=== PATIENT | female | born 1950 | race Hispanic/Latino ===

== ENCOUNTER 2017-05-18 06:30 | Inpatient (IN) | payer OTHER ==
[2017-05-16 14:00] VITALS: BP 119/61
[2017-05-16 14:21] LABS: BASOPHILS % (AUTO) 0.6 % (0.0-5.0); EOSINOPHILS % (AUTO) 1.1 % (0.0-8.0); HEMATOCRIT 41.6 % (36-48); LYMPHOCYTES % (AUTO) 24.6 % (21.0-51.0); MEAN CORPUSCULAR HEMOGLOBIN 31.1 pg (27.0-33.0); MEAN CORPUSCULAR HGB CONC 33.6 g/dL (32.0-36.0); MEAN CORPUSCULAR VOLUME 92.3 fL (79-99); MONOCYTES % (AUTO) 6.1 % (3.0-13.0); NEUTROPHILS % (AUTO) 67.6 % (40.0-77.0); PLATELET COUNT (AUTO) 209 K/uL (130-400); RED BLOOD CELL COUNT(AUTO) 4.51 MIL/uL (4.00-5.50); RED CELL DISTRIBUTION WIDTH 13.9 % (11.0-15.5); WHITE BLOOD COUNT (AUTO) 8.6 K/uL (4.8-10.8)
[2017-05-16 14:50] LABS: ALBUMIN 3.5 g/dL (3.5-5.0); BILIRUBIN,TOTAL 0.2 mg/dL (0.2-1.0); CREATININE 0.9 mg/dL (0.5-1.5); POTASSIUM 4.5 mmol/L (3.5-5.1); TOTAL PROTEIN, SERUM 7.3 g/dL (6.0-8.3)
[2017-05-18] VITALS (25 sets, daily range): BP systolic 92–125; BP diastolic 42–71
[~2017-05-18] VITALS: Ht 148.6 cm; Wt 72.7 kg
[~2017-05-18 06:30] MED LIST: CALDOLOR 800MG+NS 250ML 250 ML IV SCH; CETI10TA86 PO; L.AC1CAP6 PO; MONT10TA24 PO; MULT-1296 PO; OMEP20CA10 PO
[2017-05-18] MEDS ORDERED: LACTATED RINGERS 1000ML 1,000 ML IV ONE (07:16)
[2017-05-18] MEDS: CEFAZOLIN SODIUM 1 GM VIAL IVP SCH ×3 (07:30→18:23)
[2017-05-18] MEDS ORDERED: PROPOFOL 10 MG/ML 20ML VIAL IV ONE (08:08)
[2017-05-18] MEDS ORDERED: MIDAZOLAM HCL 1 MG/ML 2ML VIAL ONE (08:09)
[2017-05-18] MEDS ORDERED: FENTANYL CITRATE PF 50 MCG/1 ML 5ML AMP IV ONE (08:09)
[2017-05-18] MEDS ORDERED: BUPIVACAINE/PF 0.25% 30ML VIAL IJ ONE (08:53)
[2017-05-18] MEDS ORDERED: LIDOCAINE HCL/EPINEPHRINE 50 ML VIAL IJ ONE (08:53)
[2017-05-18] MEDS ORDERED: DEXAMETHASONE SOD PHOSPHATE 10MG/ML 1ML VIAL ONE (09:35)
[2017-05-18] MEDS ORDERED: ONDANSETRON HCL 4 MG/2 ML VIAL ONE (09:35)
[2017-05-18] MEDS ORDERED: ROCURONIUM BROMIDE 10MG/1ML 5ML VL ONE (09:35)
[2017-05-18] MEDS ORDERED: LIDOCAINE PF 2% 5ML ABBOJECT ONE (09:35)
[2017-05-18] MEDS ORDERED: PROMETHAZINE HCL 25 MG/ML 1ML AMPULE IM PRN (10:30)
[2017-05-18] MEDS ORDERED: DiphenhydrAMINE HCL 50 MG/ML VIAL IV PRN (10:30)
[2017-05-18] MEDS ORDERED: ONDANSETRON HCL 4 MG/2 ML VIAL IV PRN (10:30)
[2017-05-18] MEDS ORDERED: BISACODYL 10 MG SUPP.RECT RC PRN (10:30)
[2017-05-18] MEDS ORDERED: METOCLOPRAMIDE 10 MG/2 ML VIAL IV PRN (10:30)
[2017-05-18] MEDS ORDERED: NALOXONE HCL 0.4 MG/1 ML ML IVP PRN (10:30)
[2017-05-18] MEDS ORDERED: DIPHENHYDRAMINE HCL 25 MG CAPSULE PO PRN (10:30)
[2017-05-18] MEDS ORDERED: MEPERIDINE 10MG/ML 50ML PCA 50 ML IV PRN (10:30)
[2017-05-18] MEDS ORDERED: MEPERIDINE-PF 50 MG/ML SYG ONE (10:38)
[2017-05-18] MEDS ORDERED: WATER FOR INJECTION,STERILE 20 ML VIAL IJ SCH ×2 (10:45→18:12)
[2017-05-18] MEDS ORDERED: CEFAZOLIN 2GM / 50 ML 50 ML IV SCH (14:00)
[2017-05-18] MEDS ORDERED: COMPOUND IV REFRIGERATED 1 EACH IVSOLN MISC PRN (18:30)
[2017-05-18] MEDS: CALDOLOR 800MG+NS 250ML 250 ML IVPB SCH (18:55)
[2017-05-18] MEDS: DEXTROSE 5 %-0.45 % NACL 1,000 ML IV PRN (23:57)
[2017-05-19] MEDS ORDERED: CEFAZOLIN 1GM / D5W 50ML 100 ML ONE (02:28)
[2017-05-19] MEDS: CEFAZOLIN SODIUM 1 GM VIAL IVP SCH (02:35)
[2017-05-19] MEDS: DEXTROSE 5 %-0.45 % NACL 1,000 ML IV PRN (02:49)
[2017-05-19] MEDS: CALDOLOR 800MG+NS 250ML 250 ML IVPB SCH (02:49)
[2017-05-19 03:35] VITALS: BP 101/56
[2017-05-19 06:05] LABS: HEMATOCRIT 34.4 % (36-48); MEAN CORPUSCULAR HEMOGLOBIN 31.9 pg (27.0-33.0); MEAN CORPUSCULAR HGB CONC 34.4 g/dL (32.0-36.0); MEAN CORPUSCULAR VOLUME 92.7 fL (79-99); PLATELET COUNT (AUTO) 165 K/uL (130-400); RED BLOOD CELL COUNT(AUTO) 3.71 MIL/uL (4.00-5.50); RED CELL DISTRIBUTION WIDTH 13.8 % (11.0-15.5); WHITE BLOOD COUNT (AUTO) 16.9 K/uL (4.8-10.8)
[2017-05-19 08:14] VITALS: BP 93/54
[2017-05-19] MEDS: SIMETHICONE 80 MG TAB.CHEW PO PRN ×3 (09:37→21:25)
[2017-05-19] MEDS: PANTOPRAZOLE SODIUM 40 MG TABLET.DR PO SCH (09:37)
[2017-05-19] MEDS: MONTELUKAST SODIUM 10 MG TAB PO SCH (09:37)
[2017-05-19] MEDS: IBUPROFEN 800 MG TAB PO SCH ×2 (11:25→18:30)
[2017-05-19 12:15] VITALS: BP 131/70
[2017-05-19] MEDS: ACETAMINOPHEN-CODEINE 300/30MG TAB PO PRN ×2 (14:08→20:52)
[2017-05-19 20:13] VITALS: BP 116/65
[2017-05-19 23:19] VITALS: BP 99/64
[2017-05-20] MEDS: IBUPROFEN 800 MG TAB PO SCH ×2 (02:46→11:13)
[2017-05-20 02:55] VITALS: BP 98/58
[2017-05-20 07:59] VITALS: BP 119/70
[2017-05-20] MEDS: SIMETHICONE 80 MG TAB.CHEW PO PRN (09:23)
[2017-05-20] MEDS: PANTOPRAZOLE SODIUM 40 MG TABLET.DR PO SCH (09:23)
[2017-05-20] MEDS: MONTELUKAST SODIUM 10 MG TAB PO SCH (09:23)
[2017-05-20 11:16] VITALS: BP 137/69
== END 2017-05-20 12:40 | disposition home or self-care (01) | DRG 743 ==
LOC: DAH 06:30 → WSH 06:31 → DAH 06:31 → WSH 12:10
PROC: 0UT90ZZ Resection of Uterus, Open Approach (ICD-10-PCS; principal; 2017-05-18 08:05)
PROC: 0UT70ZZ Resection of Bilateral Fallopian Tubes, Open Approach (ICD-10-PCS; 2017-05-18 08:05)
PROC: 0UT20ZZ Resection of Bilateral Ovaries, Open Approach (ICD-10-PCS; 2017-05-18 08:05)
DX: N85.00 Endometrial hyperplasia, unspecified (principal); E66.9 Obesity, unspecified; K66.0 Peritoneal adhesions (postprocedural) (postinfection); Z68.32 Body mass index [BMI] 32.0-32.9, adult; Z88.8 Allergy status to other drugs, medicaments and biological substances
CPT/HCPCS: 36415; 80053; 85025; 85027; 86850; 86900; 86901; 88307; 96365; A4218; A4344; A4606; J0690; J1100; J1741; J2001; J2175; J2250; J2405; J2550; J2704; J2765; J3010; J3490; J7030; J7120

== ENCOUNTER → 2018-05-08 | Outpatient (CLI) | payer OTHER ==
[~2018-05-08] MED LIST changes: -CALDOLOR 800MG+NS 250ML 250 ML IV SCH
== END | disposition home or self-care (01) ==
LOC: RAH 14:47
PROVIDERS: ATTEND Urology
DX: N28.1 Cyst of kidney, acquired (principal); Z87.440 Personal history of urinary (tract) infections
CPT/HCPCS: 76770

== ENCOUNTER → 2020-06-18 | Outpatient (CLI) | payer MEDICARE, OTHER ==
[~2020-06-18] MED LIST changes: -MONT10TA24 PO; +MONT10TA32 PO; -OMEP20CA10 PO; +OMEP20CA12 PO
== END | disposition home or self-care (01) ==
LOC: SHCH 13:21
PROVIDERS: ATTEND Internal Medicine Cardiovascular Disease
DX: R55 Syncope and collapse (principal); R00.2 Palpitations
CPT/HCPCS: 93306; 93356

== ENCOUNTER → 2020-07-09 | Outpatient (CLI) | payer MEDICARE, OTHER | END | disposition home or self-care (01) | LOC: OIH 07:48 | PROVIDERS: ATTEND Internal Medicine | DX: M19.072 Primary osteoarthritis, left ankle and foot (principal); M19.042 Primary osteoarthritis, left hand; M19.041 Primary osteoarthritis, right hand; M25.775 Osteophyte, left foot; M77.32 Calcaneal spur, left foot; M25.742 Osteophyte, left hand; M25.741 Osteophyte, right hand | CPT/HCPCS: 73630 ==

== ENCOUNTER → 2022-06-24 | Outpatient (CLI) | payer MEDICARE, OTHER ==
[~2022-06-24] MED LIST changes: -CETI10TA86 PO; +CETI10TA87 PO; +MONT-39 PO; -MONT10TA32 PO
== END | disposition home or self-care (01) ==
LOC: RAH 08:31
PROVIDERS: ATTEND Internal Medicine Gastroenterology
DX: K21.9 Gastro-esophageal reflux disease without esophagitis (principal); R12 Heartburn; R49.8 Other voice and resonance disorders
CPT/HCPCS: 74240

== ENCOUNTER 2023-07-20 09:14 | Emergency (ER) | payer MEDICARE, OTHER ==
[~2023-07-20] VITALS: Ht 162.6 cm; Wt 86.2 kg
[~2023-07-20 09:14] MED LIST changes: +AEC81 PO; +ATOR40TA71 PO; +CHOL500045 PO; +CRAN1CAP5 PO; +FAMO40TA7 PO; +MULT-1250 PO; -MULT-1296 PO; +VERA120T92 PO
[2023-07-20] MEDS: 0.9%NACL 1000ML 1,000 ML IV ONE (10:08)
[2023-07-20] MEDS: MORPHINE 2 MG SYG IVP ONE ×2 (10:08→11:45)
[2023-07-20] MEDS: ONDANSETRON 4MG INJ IVP ONE (10:17)
[2023-07-20 10:27] LABS: BASOPHILS # (AUTO) 0.02 K/uL (0.00-0.20); BASOPHILS % (AUTO) 0.3 % (0.0-5.0); EOSINOPHILS # (AUTO) 0.07 K/uL (0.00-0.70); EOSINOPHILS % (AUTO) 0.9 % (0.0-8.0); HEMATOCRIT 40.7 % (36-48); IMMATURE GRANULOCYTE ABSOLUTE 0.03 K/uL (0-1); LYMPHOCYTES # (AUTO) 1.9 K/uL (1.0-4.8); LYMPHOCYTES % (AUTO) 23.4 % (21.0-51.0); MEAN CORPUSCULAR HEMOGLOBIN 30.9 pg (27.0-33.0); MEAN CORPUSCULAR HGB CONC 32.9 g/dL (32.0-36.0); MEAN CORPUSCULAR VOLUME 93.8 fL (79-99); MONOCYTES # (AUTO) 0.5 K/uL (0.1-1.0); MONOCYTES % (AUTO) 6.6 % (3.0-13.0); NEUTROPHILS # (AUTO) 5.5 K/uL (1.8-7.7); NEUTROPHILS % (AUTO) 68.4 % (40.0-77.0); PLATELET COUNT (AUTO) 177 K/uL (130-400); RED BLOOD CELL COUNT(AUTO) 4.34 MIL/uL (4.00-5.50); RED CELL DISTRIBUTION WIDTH 13.9 % (11.0-15.5)
[2023-07-20 10:30] LABS: APPEARANCE,URINE CLEAR (CLEAR); BILIRUBIN,URINE NEGATIVE (NEGATIVE); COLOR,URINE YELLOW (YELLOW); GLUCOSE, URINE (UA) NEGATIVE (NEGATIVE); KETONES,URINE 5 mg/dL (NEGATIVE); LEUKOCYTE ESTERASE ,URINE 75 Leu/uL (NEGATIVE); NITRATE,URINE NEGATIVE (NEGATIVE); OCCULT BLOOD,URINE NEGATIVE (NEGATIVE); PH,URINE 5.5 (5.0-8.0); PROTEIN,URINE 30 mg/dL (NEGATIVE); UROBILINOGEN,URINE 0.2 mg/dL (0.2-1.0)
[2023-07-20 10:33] LABS: ADD UA MICROSCOPIC YES
[2023-07-20 10:34] LABS: BACTERIA,URINE RARE /HPF (None Seen); MUCUS,URINE RARE LPF (None Seen); OTHER CASTS, URINE 1 /LPF (None Seen); SQUAMOUS EPITHELIAL CELL,UR RARE /HPF (0-2)
[2023-07-20 11:00] LABS: ALBUMIN 3.7 g/dL (3.5-5.0); BILIRUBIN,TOTAL 0.4 mg/dL (0.2-1.0); CREATININE 0.8 mg/dL (0.5-1.0); POTASSIUM 3.7 mmol/L (3.5-5.1); TOTAL PROTEIN, SERUM 7.7 g/dL (6.0-8.3)
[2023-07-20] MEDS: MAG/ALUM/SIMETH 30 ML UDCUP PO ONE (11:45)
[2023-07-20] MEDS: DICYCLOMINE HCL 10 MG/5 ML ML PO ONE (11:45)
[2023-07-20] MEDS: LIDOCAINE HCL 2% VISCOUS 15 ML UDCUP PO ONE (11:45)
[2023-07-20] MEDS ORDERED: METO-296 PO (12:49)
[2023-07-20] MEDS ORDERED: PHEN-847 PO (12:49)
[2023-07-20] MEDS ORDERED: PANT40TA PO (12:49)
[2023-07-20] MEDS ORDERED: CEPH500B PO (12:49)
[2023-07-20 13:06] VITALS: BP 115/73; PULSE 60; RESP 18; O2SAT 98
== END 2023-07-20 13:27 | disposition home or self-care (01) ==
LOC: EDH 09:14
DX: N39.0 Urinary tract infection, site not specified (principal); K29.70 Gastritis, unspecified, without bleeding; E78.00 Pure hypercholesterolemia, unspecified; I10 Essential (primary) hypertension; J45.909 Unspecified asthma, uncomplicated; K21.9 Gastro-esophageal reflux disease without esophagitis; Z79.82 Long term (current) use of aspirin; Z88.1 Allergy status to other antibiotic agents
CPT/HCPCS: 99285; 74176; 96374; 71045; 96361; 96375; 82550; 84484; 80053; 83690; 85025; 87088; 81001; 36415; 96376; 93005; J2270 ×2; J7030; J2405

== ENCOUNTER 2025-03-26 08:39 | Emergency (ER) | payer MEDICARE, OTHER ==
[~2025-03-26] VITALS: Ht 149.9 cm; Wt 82.6 kg
--- NOTE | 2025-03-26 08:53 | NUR ---
PATIENT PLACED IN HALLWAY A
[2025-03-26] MEDS: FLUORESCEIN SODIUM 1 STRIP STRIP ONE ×2 (09:29)
--- NOTE | 2025-03-26 09:30 | NUR ---
PATIENT PLACED IN ER 12
[2025-03-26] MEDS: FLUORESCEIN SODIUM 1 STRIP STRIP OP ONE (09:39)
--- NOTE | 2025-03-26 09:40 | NUR ---
PATIENT TAKEN TO CT
--- NOTE | 2025-03-26 09:44 | NUR ---
ONE OIQPQ-L-IWAPY WAS NEEDED
--- NOTE | 2025-03-26 09:46 | NUR ---
PATIENT BACK FROM CT
--- NOTE | 2025-03-26 10:07 | ERN ---
General Chief Complaint: Face Pain/Problem Stated Complaint: FACE PAIN Time Seen by MD: 08:41 Source: patient History of Present Illness Initial Comments Ms Lea, 74F with past medical history of hypertension, psoriasis, CKD came to ED with chief complaint of severe left eye pain since yesterday. She reports her pain started spontaneously with no trauma and has progressed to a scale of 10 x 10 this morning associated with left-sided headache, tearing and nausea not relieved by sleeping or resting that prompted her to come to the ED. she reports increased pain when she is turning high eyes to the left side and right side. She had history of cataract surgery but no trauma to the eyes. Timing/Duration: 24 hours Severity: severe Associated Symptoms: denies symptoms, headaches, nausea/vomiting Allergies: Coded Allergies: levofloxacin (Verified Allergy, Unknown, 05/17/17) Home Meds Active Scripts Pantoprazole Sodium (Protonix) 40 Mg Tablet.dr, 40 MG PO DAILY, #30 TAB 0 Refills Prov:BARBY JEAN Sr., MD 07/20/23 Metoclopramide HCl (Reglan) 10 Mg Tablet, 10 MG PO QIDP PRN for NAUSEA, #40 TAB 2 Refills Prov:BARBY JEAN Sr., MD 07/20/23 Phenazopyridine HCl (Pyridium) 200 Mg Tab, 200 MG PO TIDPC, #6 TAB 0 Refills TAKE WITH FOOD TO PREVENT STOMACH UPSET. Prov:BARBY JEAN Sr., MD 07/20/23 Cephalexin Monohydrate (Keflex) 500 Mg Cap, 500 MG PO QID for 10 Days, #40 CAP 0 Refills Prov:BARBY JEAN Sr., MD 07/20/23 Reported Medications Aspirin (ASPIRIN 81 MG ECTAB) 81 Mg Ectab, 81 MG PO DAILY, #30 TAB.EC 3 Refills 08/14/22 Atorvastatin Calcium (Atorvastatin Calcium) 40 Mg Tablet, 40 MG PO HS, #30 TAB 3 Refills 08/14/22 Verapamil HCl (Verapamil ER) 120 Mg Tablet.er, 120 MG PO BID, #60 TAB 3 Refills 08/14/22 Cranberry Extract/Vit C (Azo Cranberry Softgel) 1 Each Capsule, 1 EACH PO DAILY, CAP 08/11/22 Cholecalciferol (Vitamin D3) (Vitamin D3) 125 Mcg Tablet, 125 MCG PO DAILY, TAB 08/11/22 Multivits-Min/Iron/FA/Lutein (Centrum Silver Women Tablet) 1 Each Tablet, 1 EACH PO DAILY, TAB 08/11/22 Famotidine (Famotidine) 40 Mg Tablet, 40 MG PO HS, TAB 08/11/22 Omeprazole (Omeprazole) 20 Mg Capsule.dr, 20 MG PO AM, CAP 05/16/17 L.acidoph & Paracasei,B.lactis (Probiotic) 1 Each Capsule, 1 EACH PO AM, CAP 05/16/17 Montelukast Sodium (Montelukast Sodium) 10 Mg Tablet, 10 MG PO AM, TAB 05/16/17 Cetirizine HCl (Cetirizine HCl) 10 Mg Tab.chew, 10 MG PO HS, TAB.CHEW 05/16/17 Past Medical History Past Medical History: High Cholesterol, Hypertension Medical History Other: PSORIASIS Past Surgical History: Hysterectomy Surgical History Other: CATARACT SURGERY Social History Social History: Negative, Lives with family Female( History) History: Not Applicable Constitutional: (-) chills, (-) diaphoresis, (-) fever, (-) malaise, (-) weakness, (-) other documentation EENTM: (+) eye pain, (+) tearing; (-) blurred vision, (-) double vision, (-) ear pain, (-) ear discharge, (-) nose pain, (-) nose congestion, (-) throat pain, (-) Throat swelling, (-) mouth pain, (-) tooth pain, (-) mouth swelling, (-) other documentation Respiratory: (-) cough, (-) orthopnea, (-) short of breath, (-) stridor, (-) wheezing, (-) other documentation Cardiovascular: (+) edema; (-) chest pain, (-) palpitations, (-) syncope, (-) dyspnea on exertion, (-) other documentation Gastrointestinal/Abdominal: (+) nausea; (-) vomiting, (-) diarrhea, (-) abdominal pain, (-) abdominal distention, (-) constipation, (-) rectal bleeding, (-) dark stool/melena, (-) other documentation Genitourinary: (-) vaginal discharge, (-) vaginal bleeding, (-) dysuria, (-) frequency, (-) hematuria, (-) pain, (-) other documentation Musculoskeletal: (+) joint pain; (-) Neck pain, (-) back pain, (-) Flank Pain, (-) joint swelling, (-) muscle pain, (-) muscle stiffness, (-) gout, (-) other documentation Skin: (-) laceration, (-) contusion, (-) abrasion, (-) abscess, (-) rash, (-) change in color, (-) change in hair, (-) change in nails, (-) diaphoresis, (-) dryness, (-) other documentation Neuro: (+) headache; (-) altered mental status, (-) syncope, (-) paralysis, (-) numbness, (-) seizure, (-) pre-existing deficit, (-) tremors, (-) weakness, (-) dizziness, (-) slurred speech, (-) vertigo, (-) other documentation Psych: (-) depression, (-) suicidal ideation, (-) anxiety, (-) emotional problems, (-) auditory hallucinations, (-) visual hallucinations Hematologic/Lymphatic: (-) anemia, (-) blood clots, (-) easy bleeding, (-) easy bruising, (-) swollen glands, (-) other documentation Immunological/Allergic: (-) food allergy, (-) grass allergy, (-) mold allergy, (-) pollen allergy, (-) HIV/AIDS, (-) transplant, (-) othe documentation Review of Systems: was completed, & the rest were negative. Physical Exam General Appearance: (+) severe distress Orientation: (+) alert, (+) oriented x 3 Head/Face Trauma: No Eye: right eye normal inspection, right eye PERRL; left eye abnormal EOM, left eye abnormal pupil, left eye conjunctivae pale Ear, Nose, Throat: (+) hearing grossly normal, (+) normal ENT inspection, (+) moist mucous membraine, (+) normal pharynx Neck: (+) normal inspection, (+) supple, (+) full range of motion Respiratory: (+) chest non-tender, (+) lungs clear, (+) well ventilated Heart: (+) regular, (+) no gallop Vascular: (+) normal peripheral pulse, (+) edema Gastrointestinal: (+) soft, (+) non-tender, (+) no organomegaly, (+) bowel sound present Breast Exam: (+) deferred Genital: (+) deferred Rectal: (+) deferred Back: (+) normal inspection Extremities: (+) normal range of motion, (+) non-tender, (+) normal inspection Neurologic/Psychiatric: (+) normal speech, (+) no motor defecits, (+) no sensory deficits Skin: (+) normal color Results Laboratory and Microbiology Labs Reviewed?: Yes EKG/XRAY/US/CT/MRI CT Scan Comment [facility] [address] [place] [address] IMAGING REPORT Signed PATIENT: FAUSTO LEA MR#: [id number] : 1950 SEX: F AGE: 74 LOCATION: [facility] ORDER 6 STATUS: REG REPORT#: [id number] SERVICE 5 REASON: left eye pain ORDERING PHYSICIAN: KIP STEINBERG MD PROCEDURE: ORB IAC WO - CT ORB/MARION/EAR W/O CONTRAST EXAM: CT Orbits without Intravenous Contrast. CLINICAL HISTORY: Left eye pain. TECHNIQUE: Axial computed tomography images of the orbits without intravenous contrast, with reformatted images. CONTRAST: None. COMPARISON: None provided. FINDINGS: ORBITS: Unremarkable. No retrobulbar hematoma. No post-septal fat stranding or fluid BONES: No acute fracture or aggressively appearing osseous lesion. No periosteal reaction. SINUSES: No sinus air-fluid level as visualized. SOFT TISSUES: No soft tissue gas. No radiopaque foreign body. IMPRESSION: No acute orbital abnormalities. /[place] DICTATED BY: JULIANNE MARTELL Jr., MD DATE: 03/26/251120 ELECTRONICALLY SIGNED BY: JULIANNE MARTELL Jr., MD DATE: 03/26/251120 [facility] Differential diagnosis: Eye pain, conjunctivitis, increased pressure The patient came to the ED with chief complaint of severe left eye pain since yesterday In the ED we tested her intraocular pressure with Dmitry-Pen. The reading for 16 mm,13 mm, 17mm, 15mm Slit-lamp examination with fluorescein stain showed no corneal abrasions The patient received 0.5% tetracaine drops and gabapentin 100 mg once for pain Patient's pain improved, stable and can be discharged with antibiotic eyedrops and pain medication ED Course Orders Procedure Category Date Status Time Fluorescein Sodium PHA 03/26/25 Complete (Zskkz-Z-Wslyj At) 09:16 Fluorescein Sodium PHA 03/26/25 Complete (Sybcs-D-Vvhyp At) 09:30 Fluorescein Sodium PHA 03/26/25 Complete (Luyjb-P-Bpyle At) 09:21 Gabapentin 100 Mg Cap PHA 03/26/25 Complete (Neurontin 100 Mg 09:26 Ct Orb/Mar[place]/Ear W/O CT 03/26/25 Resulted Contrast 09:26 Current Medications Medications (Trade) Dose Ordered Sig/Shagufta Route PRN Reason Start Time Stop Time Status Last Admin Dose Admin Fluorescein Sodium (Mvynf-H-Ufxcp At) 1 strip STK-MED ONCE .ROUTE 03/26/25 09:16 03/26/25 09:17 DC 03/26/25 09:29 Fluorescein Sodium (Tqeqq-D-Hvprf At) 1 strip STK-MED ONCE .ROUTE 03/26/25 09:21 03/26/25 09:21 DC Fluorescein Sodium (Ubmux-Y-Iygxh At) 2 strip ONCE ONCE OP 03/26/25 09:30 03/26/25 09:31 DC Gabapentin (NEURontin 100 mg CAP) 100 mg ONCE STAT PO 03/26/25 09:26 03/26/25 09:29 DC 03/26/25 09:36 Vital Signs Date Time Temp Pulse Resp B/P (MAP) Pulse Ox O2 Delivery O2 Flow Rate FiO2 03/26/25 08:53 97.3 94 20 154/94 96 Room Air* 0 21 03/26/25 08:41 97.3 94 20 154/94 96 Room Air DX & DISP Disposition: Discharge Departure Impression: Primary Impression: Conjunctivitis Condition: Stable Scripts Gabapentin (Gabapentin) 100 Mg Capsule 1 CAP PO BID for 5 Days, #10 CAP 0 Refills Prov: KIP STEINBERG MD 03/26/25 Tito/Polymyx B Sulf/Dexameth (Maxitrol Ophth Susp) 3.5 Mg/Ml-10,000 Unit/Ml-0.1 % Opsus 1 DROP OP QID, #5 ML 0 Refills Prov: KIP STEINBERG MD 03/26/25 Additional Instructions: FOLLOW-UP WITH PRIMARY CARE PROVIDER IN 1 TO 2 DAYS. TAKE MEDICATIONS DIRECTED HERE IN THE EMERGENCY ROOM. OKAY TO CONTINUE HOME MEDICATIONS UNLESS OTHERWISE DISCUSSED DURING YOUR VISIT IN THE EMERGENCY ROOM TODAY. RETURN TO YOUR NEAREST EMERGENCY ROOM IF SYMPTOMS WORSEN OR IF THERE IS NO IMPROVEMENT. CALL 911 IF YOU NEED IMMEDIATE ASSISTANCE. TAKE TYLENOL XQGL-YBR-UYPVLBN NEEDED AND IF NO CONTRAINDICATIONS ARE PRESENT. INCREASE ORAL HYDRATION. A WOUND CULTURE OR URINE CULTURE WAS ORDERED HERE IN THE EMERGENCY ROOM DEPARTMENT PLEASE FOLLOW-UP WITH PRIMARY CARE PROVIDER AND ADVISE THEM TO GET REPORTS FROM OUR FACILITY. IF YOU HAD ANY GRACIELA WRAP/SPLINTS THAT WERE APPLIED HERE, PLEASE DO NOT REMOVE THEM UNTIL YOU SEE YOUR PRIMARY CARE OR SPECIALTY. Referrals: Referrals: SELF,REFERRAL (PCP) ARISTIDES KENNEDY MD Time of Disposition: 10:30 KIP STEINBERG MD Mar 26, 2025 10:06
--- NOTE | 2025-03-26 10:22 | HMCIMG ---
EXAM: CT Orbits without Intravenous Contrast. CLINICAL HISTORY: Left eye pain. TECHNIQUE: Axial computed tomography images of the orbits without intravenous contrast, with reformatted images. CONTRAST: None. COMPARISON: None provided. FINDINGS: ORBITS: Unremarkable. No retrobulbar hematoma. No post-septal fat stranding or fluid BONES: No acute fracture or aggressively appearing osseous lesion. No periosteal reaction. SINUSES: No sinus air-fluid level as visualized. SOFT TISSUES: No soft tissue gas. No radiopaque foreign body. IMPRESSION: No acute orbital abnormalities. /[place]
[2025-03-26 10:41] VITALS: BP 171/78; PULSE 77; RESP 15; TEMP 97.3; O2SAT 97
== END 2025-03-26 11:20 | disposition home or self-care (01) ==
LOC: EDH 08:39
DX: H10.9 Unspecified conjunctivitis (principal); R51.9 Headache, unspecified; R11.0 Nausea; I12.9 Hypertensive chronic kidney disease with stage 1 through stage 4 chronic kidney disease, or unspecified chronic kidney disease; N18.9 Chronic kidney disease, unspecified; E78.00 Pure hypercholesterolemia, unspecified; Z88.1 Allergy status to other antibiotic agents; Z79.899 Other long term (current) drug therapy; Z79.82 Long term (current) use of aspirin; Z90.710 Acquired absence of both cervix and uterus; Z98.49 Cataract extraction status, unspecified eye
CPT/HCPCS: 70480; 99284